=== PATIENT | female | born 1965 | race American Indian/Alaskan Native ===

== ENCOUNTER 2017-02-22 15:12 | Outpatient (CLI) | payer MEDICARE ==
--- NOTE | 2017-02-23 09:45 | Mammography Report ---
Bilateral mammogram: Compared to 12/27/13. CAD study utilized. Findings: Predominance adipose tissue bilaterally. Benign density right breast. Benign axillary nodes. No microcalcification. Benign calcifications bilaterally. Impression: Benign findings. Annual followup recommended. BI-RADS CATEGORY: 2 = Benign ACR BI-RADS MAMMOGRAPHIC CODES: 0 = Needs additional imaging evaluation; 1 = Negative; 2 = Benign; 3 = Probably benign; 4 = Suspicious; 5 = Malignant; 6 = Known biopsy-proven malignancy COMMENT: 1. Dense breast tissue, i.e., adenosis, fibrocystic changes, etc., may obscure an underlying neoplasm. 2. Approximately 10% of cancers are not detected with mammography. 3. A negative mammography report should not delay biopsy if a clinically suspicious mass is present. COMMENT: Patient follow-up letters are generated in [employer].
== END 2017-02-22 15:13 | disposition home or self-care (01) ==
LOC: MAMMO 15:12
PROVIDERS: ATTEND Physician Assistant
DX: Z12.31 Encounter for screening mammogram for malignant neoplasm of breast (principal)
CPT/HCPCS: 77067; G0202

== ENCOUNTER 2017-03-15 17:43 | Emergency (ER) | payer MEDICARE ==
[2017-03-15 18:52] LABS: Hematocrit 37.3 % (30.3-42.9); Mean Corpuscular HGB Conc 32 % (30-34); Mean Corpuscular Hemoglobin 28 pg (28-32); Mean Corpuscular Volume 86 fl (79-97); Platelet Count 154 K/mm3 (140-440); Red Blood Count 4.35 M/mm3 (3.65-5.03); Red Cell Distribution Width 14.4 % (13.2-15.2); White Blood Count 2.9 K/mm3 (4.5-11.0)
[2017-03-15 19:13] LABS: Anion Gap 17 mmol/L; BUN/Creatinine Ratio 14; Blood Urea Nitrogen 10 mg/dL (7-17); Calcium 8.3 mg/dL (8.4-10.2); Carbon Dioxide 24 mmol/L (22-30); Chloride 97.2 mmol/L (98-107); Glucose 102 mg/dL (65-100); Potassium 3.4 mmol/L (3.6-5.0); Sodium 135 mmol/L (137-145)
[2017-03-15] MEDS ORDERED: MOTRIN PO ONE (23:18)
[2017-03-15] MEDS ORDERED: ZOFRAN ODT PO ONE (23:18)
[2017-03-15] MEDS ORDERED: GUAIFENESIN DM SYRUP PO ONE (23:19)
--- NOTE | 2017-03-16 | Emergency Department Report ---
- General Chief Complaint: Upper Respiratory Infection Stated Complaint: FLU LIKE SYMPTOMS Time Seen by Provider: 03/15/17 23:10 Source: patient Mode of arrival: Ambulatory Limitations: No Limitations - History of Present Illness Initial Comments: 51-year-old female past medical history asthma, hypertension and sarcoidosis presents with complaint of runny nose, sore throat, chills fever and body aches. Patient awake alert and oriented 3 speaking in full sentences no trismus noted drooling or stridor audible on exam. Patient denies chest pain or palpitations. Primarily complaining of viral type symptoms as stated above. Symptoms have been ongoing for 3 days. Patient is not sure if she has had sick contacts. Has not taken any medicines at home for symptoms. MD Complaint: fever, cough, sore throat, rhinorrhea, nasal congestion Onset/Timin -: days(s) Severity: moderate Severity scale (0 -10): 5 Improves With: nothing Associated Symptoms: fever, chills, rhinorrhea, cough Treatments Prior to Arrival: none - Related Data Home Medications Medication Instructions Recorded Confirmed Last Taken Cyclobenzaprine [Flexeril 10 MG 10 mg PO QHS 07/03/14 06/04/15 04/29/15 21:00 TAB] Previous Rx's Medication Instructions Recorded Last Taken Type ALBUTEROL Inhaler [ProAir HFA 2 puff IH QID PRN #1 inha 07/09/14 01/29/15 09:00 Rx Inhaler] Esomeprazole Magnesium [NexIUM] 40 mg PO QDAY #30 capsule. 07/09/14 04/29/15 09:00 Rx Fluticasone (Nf) [Flovent HFA] 2 inh IH DAILY #1 puff 07/09/14 04/05/15 09:00 Rx Albuterol *Only Ed* [Proventil 2.5 mg IH Q4HRT PRN #120 nebu 06/05/15 Unknown Rx 0.5% NEBS] Amitriptyline [Elavil] 10 mg PO QHS #30 tablet 06/05/15 Unknown Rx Budesonide [Pulmicort Respules] 0.5 mg IH Q12HRT #60 nebu 06/05/15 Unknown Rx Docusate Sodium [Colace CAP] 100 mg PO BID #60 capsule 06/05/15 Unknown Rx Ferrous Sulfate [Feosol 325 MG tab] 325 mg PO DAILY #30 tablet 06/05/15 Unknown Rx Ibuprofen 800 mg PO TID #30 06/05/15 Unknown Rx Sertraline [Zoloft] 100 mg PO QHS #30 tablet 06/05/15 Unknown Rx amLODIPine [Norvasc] 10 mg PO DAILY #30 tablet 06/05/15 Unknown Rx predniSONE [Deltasone] 1 mg PO DAILY #30 tablet 06/05/15 Unknown Rx Cyclobenzaprine [Flexeril] 10 mg PO BID PRN #10 tablet 02/12/16 Unknown Rx Ibuprofen [Motrin] 600 mg PO Q8H PRN #15 tablet 02/12/16 Unknown Rx traMADol [Ultram 50 MG tab] 50 mg PO Q4HR PRN #40 tablet 02/15/16 Unknown Rx Azithromycin [Zithromax Z-JAY] 250 mg PO QDAY #1 pack 03/16/17 Unknown Rx Dextromethorphan/Benzocaine 1 each PO Q4H PRN #1 box 03/16/17 Unknown Rx [Cepacol Sorethroat-Cough Chayo] Ondansetron [Zofran Odt] 4 mg PO Q8HR PRN #20 tab.rapdis 03/16/17 Unknown Rx Oseltamivir [Tamiflu] 75 mg PO BID #10 cap 03/16/17 Unknown Rx Phenylephrine/Dm/Acetaminop/GG 10 ml PO Q4H PRN #1 liquid 03/16/17 Unknown Rx [Mucinex Bnze-Wyw-Hgnfofkoet Lq] Allergies Allergy/AdvReac Type Severity Reaction Status Date / Time Sulfa (Sulfonamide Allergy Shortness Verified 04/22/15 15:07 Antibiotics) of Breath ED Review of Systems ROS: Stated complaint: FLU LIKE SYMPTOMS Other details as noted in HPI Constitutional: denies: chills, fever Eyes: denies: eye pain, eye discharge, vision change ENT: throat pain, congestion. denies: ear pain Respiratory: cough. denies: shortness of breath, wheezing Cardiovascular: denies: chest pain, palpitations Endocrine: no symptoms reported Gastrointestinal: denies: abdominal pain, nausea, diarrhea Genitourinary: denies: urgency, dysuria, discharge Musculoskeletal: denies: back pain, joint swelling, arthralgia Skin: denies: rash, lesions Neurological: denies: headache, weakness, paresthesias Psychiatric: denies: anxiety, depression Hematological/Lymphatic: denies: easy bleeding, easy bruising ED Past Medical Hx - Past Medical History Hx Hypertension: Yes Hx Heart Attack/AMI: No Hx Congestive Heart Failure: No Hx Diabetes: No Hx Asthma: Yes (BRONCHIAL) Hx COPD: No Hx HIV: No Additional medical history: scarodosis - Surgical History Additional Surgical History: discectomy. tubal ligation - Social History Smoking Status: Never Smoker Substance Use Type: None - Medications Home Medications: Home Medications Medication Instructions Recorded Confirmed Last Taken Type Cyclobenzaprine [Flexeril 10 MG 10 mg PO QHS 07/03/14 06/04/15 04/29/15 21:00 History TAB] ALBUTEROL Inhaler [ProAir HFA 2 puff IH QID PRN #1 inha 07/09/14 06/04/15 09:00 Rx Inhaler] Esomeprazole Magnesium [NexIUM] 40 mg PO QDAY #30 capsule. 07/09/14 06/04/15 04/29/15 09:00 Rx Fluticasone (Nf) [Flovent HFA] 2 inh IH DAILY #1 puff 07/09/14 06/04/15 09:00 Rx Albuterol *Only Ed* [Proventil 2.5 mg IH Q4HRT PRN #120 nebu 06/05/15 Unknown Rx 0.5% NEBS] Amitriptyline [Elavil] 10 mg PO QHS #30 tablet 06/05/15 Unknown Rx Budesonide [Pulmicort Respules] 0.5 mg IH Q12HRT #60 nebu 06/05/15 Unknown Rx Docusate Sodium [Colace CAP] 100 mg PO BID #60 capsule 06/05/15 Unknown Rx Ferrous Sulfate [Feosol 325 MG tab] 325 mg PO DAILY #30 tablet 06/05/15 Unknown Rx Ibuprofen 800 mg PO TID #30 06/05/15 Unknown Rx Sertraline [Zoloft] 100 mg PO QHS #30 tablet 06/05/15 Unknown Rx amLODIPine [Norvasc] 10 mg PO DAILY #30 tablet 06/05/15 Unknown Rx predniSONE [Deltasone] 1 mg PO DAILY #30 tablet 06/05/15 Unknown Rx Cyclobenzaprine [Flexeril] 10 mg PO BID PRN #10 tablet 02/12/16 Unknown Rx Ibuprofen [Motrin] 600 mg PO Q8H PRN #15 tablet 02/12/16 Unknown Rx traMADol [Ultram 50 MG tab] 50 mg PO Q4HR PRN #40 tablet 02/15/16 Unknown Rx Azithromycin [Zithromax Z-JAY] 250 mg PO QDAY #1 pack 03/16/17 Unknown Rx Dextromethorphan/Benzocaine 1 each PO Q4H PRN #1 box 03/16/17 Unknown Rx [Cepacol Sorethroat-Cough Chayo] Ondansetron [Zofran Odt] 4 mg PO Q8HR PRN #20 tab.rapdis 03/16/17 Unknown Rx Oseltamivir [Tamiflu] 75 mg PO BID #10 cap 03/16/17 Unknown Rx Phenylephrine/Dm/Acetaminop/GG 10 ml PO Q4H PRN #1 liquid 03/16/17 Unknown Rx [Mucinex Nbme-Uxh-Vtufwvqvyc Lq] ED Physical Exam - General Limitations: No Limitations General appearance: alert, in no apparent distress - Head Head exam: Present: atraumatic, normocephalic - Eye Eye exam: Present: normal appearance, PERRL, EOMI - ENT ENT exam: Present: mucous membranes moist - Neck Neck exam: Present: normal inspection, full ROM - Respiratory Respiratory exam: Present: normal lung sounds bilaterally. Absent: respiratory distress - Cardiovascular Cardiovascular Exam: Present: regular rate, normal rhythm. Absent: systolic murmur, diastolic murmur, rubs, gallop - GI/Abdominal GI/Abdominal exam: Present: soft, normal bowel sounds - Extremities Exam Extremities exam: Present: normal inspection - Back Exam Back exam: Present: normal inspection - Neurological Exam Neurological exam: Present: alert, oriented X3 - Psychiatric Psychiatric exam: Present: normal affect, normal mood - Skin Skin exam: Present: warm, dry, intact, normal color. Absent: rash ED Course Vital Signs 03/15/17 03/16/17 17:49 00:01 Temperature 98.6 F 99.2 F Pulse Rate 94 H 70 Respiratory 18 20 Rate Blood Pressure 112/65 Blood Pressure 123/76 [Right] O2 Sat by Pulse 99 99 Oximetry ED Medical Decision Making - Lab Data Result diagrams: 03/15/17 18:35 03/15/17 18:35 - Medical Decision Making A/P: Influenza A positive 1-flu test positive. Case discussed with 2-I discussed with patient whether or not she would like to take Tamiflu as symptom onset was approximately 72 hours ago. I informed patient that Tamiflu is not always effective but may help some patients with her symptoms to decrease length of illness. Patient stated she is interested in taking Tamiflu. 3-Mucinex when necessary. Patient already on daily prednisone for history of sarcoidosis. 4- will also cover patient empirically with azithromycin to mitigate secondary bacterial lung infection. 5-I advised patient to remain well-hydrated we'll provide her with Zofran when necessary for nausea. Patient states that she could follow up with her primary care doctor at the end of the week. I specifically advised patient to return to the ED for any inability to tolerate by mouth shortness of breath at rest persistent fevers above 100.4 Fahrenheit despite Tylenol or Motrin use. Critical care attestation.: If time is entered above; I have spent that time in minutes in the direct care of this critically ill patient, excluding procedure time. ED Disposition Clinical Impression: Influenza A, Viral syndrome, Flu syndrome Disposition: DC-01 TO HOME OR SELFCARE Is pt being admited?: No Does the pt Need Aspirin: No Condition: Stable Instructions: Influenza (ED), Acute Nausea and Vomiting (ED), Viral Syndrome ( ED) Prescriptions: Azithromycin [Zithromax Z-JAY] 250 mg PO QDAY #1 pack Dextromethorphan/Benzocaine [Cepacol Sorethroat-Cough Chayo] 1 each PO Q4H PRN #1 box PRN Reason: Sore Throat Ondansetron [Zofran Odt] 4 mg PO Q8HR PRN #20 tab.rapdis PRN Reason: Nausea Oseltamivir [Tamiflu] 75 mg PO BID #10 cap Phenylephrine/Dm/Acetaminop/GG [Mucinex Ncum-Dzr-Dzejyzrfos Lq] 10 ml PO Q4H PRN #1 liquid PRN Reason: Cough Referrals: PRIMARY CAREMD [Primary Care Provider] - 3-5 Days [facility] [Outside] - 3-5 Days CHARO CHAPMAN MD [Staff Physician] - 3-5 Days Forms: Accompanied Note, Work/School Release Form(ED) Time of Disposition: 00:06
[2017-03-16 00:02] VITALS: BP 123/76
--- NOTE | 2017-03-16 08:03 | XRay Report ---
Chest 2 views. History: Cough and chest pain. Findings: The heart and coronary vessels are normal. The lungs are clear. There is no pleural fluid. 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 No evidence of free air is suspected. Impression: No acute findings.
== END 2017-03-16 00:29 | disposition home or self-care (01) ==
LOC: ED 17:43
DX: J09.X2 Influenza due to identified novel influenza A virus with other respiratory manifestations (principal); B34.9 Viral infection, unspecified; I10 Essential (primary) hypertension; J45.909 Unspecified asthma, uncomplicated; Z88.2 Allergy status to sulfonamides
CPT/HCPCS: 36415; 71020; 80048; 85027; 87116; 87400; 87430; 99284; Q0162

== ENCOUNTER 2017-07-08 15:23 | Emergency (ER) | payer MEDICARE ==
[2017-07-08 16:05] VITALS: BP 127/73
[2017-07-08] MEDS ORDERED: ARTIFICIAL TEARS OPHTH OINT OU ONE (18:15)
--- NOTE | 2017-07-08 18:20 | Emergency Department Report ---
Blank Doc - Documentation Documentation: Patient is a 52-year-old female past medical history sarcoidosis who presents with ideation as pain and right thigh pain. We'll do ultrasound for right thigh and will give pt artificial tears.
[2017-07-08] MEDS ORDERED: LOVENOX SUB-Q ONE (18:37)
--- NOTE | 2017-07-08 18:42 | Emergency Department Report ---
ED General Adult HPI - General Chief complaint: Extremity Injury, Lower Stated complaint: RT UPPER THIGH PAIN/ITCY EYES Time Seen by Provider: 07/08/17 18:37 Source: patient Mode of arrival: Ambulatory Limitations: No Limitations - History of Present Illness Initial comments: Patient is a 52-year-old female past medical history of sarcoidosis who presents with right thigh pain has been going on for last couple days and try HE eyes have been going on for last 4 days. Patient states that she is having headache stuffy nose with her eyes. A Shantz thigh pain is an 8 out of 10 with an achy type of pain nothing makes it better or worse it's been going on constantly for 1 month. She denies having any trauma to the area or any swelling. Patient states that she has I doctor that she follows up with however she was not able to see him today. - Related Data Home Medications Medication Instructions Recorded Confirmed Last Taken Cyclobenzaprine [Flexeril 10 MG 10 mg PO QHS 07/03/14 06/04/15 04/29/15 21:00 TAB] Previous Rx's Medication Instructions Recorded Last Taken Type ALBUTEROL Inhaler [ProAir HFA 2 puff IH QID PRN #1 inha 07/09/14 01/29/15 09:00 Rx Inhaler] Esomeprazole Magnesium [NexIUM] 40 mg PO QDAY #30 capsule. 07/09/14 04/29/15 09:00 Rx Fluticasone (Nf) [Flovent HFA] 2 inh IH DAILY #1 puff 07/09/14 04/05/15 09:00 Rx Albuterol *Only Ed* [Proventil 2.5 mg IH Q4HRT PRN #120 nebu 06/05/15 Unknown Rx 0.5% NEBS] Amitriptyline [Elavil] 10 mg PO QHS #30 tablet 06/05/15 Unknown Rx Budesonide [Pulmicort Respules] 0.5 mg IH Q12HRT #60 nebu 06/05/15 Unknown Rx Docusate Sodium [Colace CAP] 100 mg PO BID #60 capsule 06/05/15 Unknown Rx Ferrous Sulfate [Feosol 325 MG tab] 325 mg PO DAILY #30 tablet 06/05/15 Unknown Rx Ibuprofen 800 mg PO TID #30 06/05/15 Unknown Rx Sertraline [Zoloft] 100 mg PO QHS #30 tablet 06/05/15 Unknown Rx amLODIPine [Norvasc] 10 mg PO DAILY #30 tablet 06/05/15 Unknown Rx predniSONE [Deltasone] 1 mg PO DAILY #30 tablet 06/05/15 Unknown Rx Cyclobenzaprine [Flexeril] 10 mg PO BID PRN #10 tablet 02/12/16 Unknown Rx Ibuprofen [Motrin] 600 mg PO Q8H PRN #15 tablet 02/12/16 Unknown Rx traMADol [Ultram 50 MG tab] 50 mg PO Q4HR PRN #40 tablet 02/15/16 Unknown Rx Azithromycin [Zithromax Z-JAY] 250 mg PO QDAY #1 pack 03/16/17 Unknown Rx Dextromethorphan/Benzocaine 1 each PO Q4H PRN #1 box 03/16/17 Unknown Rx [Cepacol Sorethroat-Cough Chayo] Ondansetron [Zofran Odt] 4 mg PO Q8HR PRN #20 tab.rapdis 03/16/17 Unknown Rx Oseltamivir [Tamiflu] 75 mg PO BID #10 cap 03/16/17 Unknown Rx Phenylephrine/Dm/Acetaminop/GG 10 ml PO Q4H PRN #1 liquid 03/16/17 Unknown Rx [Mucinex Enei-Pql-Bjsxmisoeg Lq] Olopatadine HCl [Pataday] 2.5 ml OP Q8H #1 bottle 07/08/17 Unknown Rx Allergies Allergy/AdvReac Type Severity Reaction Status Date / Time Sulfa (Sulfonamide Allergy Shortness Verified 04/22/15 15:07 Antibiotics) of Breath ED Review of Systems ROS: Stated complaint: RT UPPER THIGH PAIN/ITCY EYES Other details as noted in HPI Constitutional: denies: chills, fever Eyes: denies: eye pain, eye discharge, vision change ENT: denies: ear pain, throat pain Respiratory: denies: cough, shortness of breath, wheezing Cardiovascular: denies: chest pain, palpitations Endocrine: no symptoms reported Gastrointestinal: denies: abdominal pain, nausea, diarrhea Genitourinary: denies: urgency, dysuria, discharge Musculoskeletal: denies: back pain, joint swelling, arthralgia Skin: denies: rash, lesions Neurological: denies: headache, weakness, paresthesias Psychiatric: denies: anxiety, depression Hematological/Lymphatic: denies: easy bleeding, easy bruising ED Past Medical Hx - Past Medical History Hx Hypertension: Yes Hx Heart Attack/AMI: No Hx Congestive Heart Failure: No Hx Diabetes: No Hx Asthma: Yes (BRONCHIAL) Hx COPD: No Hx HIV: No Additional medical history: scarodosis - Surgical History Additional Surgical History: discectomy. tubal ligation - Social History Smoking Status: Never Smoker Substance Use Type: Alcohol - Medications Home Medications: Home Medications Medication Instructions Recorded Confirmed Last Taken Type Cyclobenzaprine [Flexeril 10 MG 10 mg PO QHS 07/03/14 06/04/15 04/29/15 21:00 History TAB] ALBUTEROL Inhaler [ProAir HFA 2 puff IH QID PRN #1 inha 07/09/14 06/04/15 09:00 Rx Inhaler] Esomeprazole Magnesium [NexIUM] 40 mg PO QDAY #30 capsule. 07/09/14 06/04/15 04/29/15 09:00 Rx Fluticasone (Nf) [Flovent HFA] 2 inh IH DAILY #1 puff 07/09/14 06/04/15 09:00 Rx Albuterol *Only Ed* [Proventil 2.5 mg IH Q4HRT PRN #120 nebu 06/05/15 Unknown Rx 0.5% NEBS] Amitriptyline [Elavil] 10 mg PO QHS #30 tablet 06/05/15 Unknown Rx Budesonide [Pulmicort Respules] 0.5 mg IH Q12HRT #60 nebu 06/05/15 Unknown Rx Docusate Sodium [Colace CAP] 100 mg PO BID #60 capsule 06/05/15 Unknown Rx Ferrous Sulfate [Feosol 325 MG tab] 325 mg PO DAILY #30 tablet 06/05/15 Unknown Rx Ibuprofen 800 mg PO TID #30 06/05/15 Unknown Rx Sertraline [Zoloft] 100 mg PO QHS #30 tablet 06/05/15 Unknown Rx amLODIPine [Norvasc] 10 mg PO DAILY #30 tablet 06/05/15 Unknown Rx predniSONE [Deltasone] 1 mg PO DAILY #30 tablet 06/05/15 Unknown Rx Cyclobenzaprine [Flexeril] 10 mg PO BID PRN #10 tablet 11/02/16 Unknown Rx Ibuprofen [Motrin] 600 mg PO Q8H PRN #15 tablet 02/12/16 Unknown Rx traMADol [Ultram 50 MG tab] 50 mg PO Q4HR PRN #40 tablet 02/15/16 Unknown Rx Azithromycin [Zithromax Z-JAY] 250 mg PO QDAY #1 pack 03/16/17 Unknown Rx Dextromethorphan/Benzocaine 1 each PO Q4H PRN #1 box 03/16/17 Unknown Rx [Cepacol Sorethroat-Cough Chayo] Ondansetron [Zofran Odt] 4 mg PO Q8HR PRN #20 tab.rapdis 03/16/17 Unknown Rx Oseltamivir [Tamiflu] 75 mg PO BID #10 cap 03/16/17 Unknown Rx Phenylephrine/Dm/Acetaminop/GG 10 ml PO Q4H PRN #1 liquid 03/16/17 Unknown Rx [Mucinex Wrkn-Uui-Udbdarwjia Lq] Olopatadine HCl [Pataday] 2.5 ml OP Q8H #1 bottle 07/08/17 Unknown Rx ED Physical Exam - General Limitations: No Limitations General appearance: alert, in no apparent distress - Head Head exam: Present: atraumatic, normocephalic - Eye Eye exam: Present: normal appearance - ENT ENT exam: Present: mucous membranes moist - Neck Neck exam: Present: normal inspection - Respiratory Respiratory exam: Present: normal lung sounds bilaterally. Absent: respiratory distress - Cardiovascular Cardiovascular Exam: Present: regular rate, normal rhythm. Absent: systolic murmur, diastolic murmur, rubs, gallop - GI/Abdominal GI/Abdominal exam: Present: soft, normal bowel sounds - Extremities Exam Extremities exam: Present: normal inspection - Back Exam Back exam: Present: normal inspection - Neurological Exam Neurological exam: Present: alert, oriented X3 - Psychiatric Psychiatric exam: Present: normal affect, normal mood - Skin Skin exam: Present: warm, dry, intact, normal color. Absent: rash ED Course Vital Signs 07/08/17 16:01 Temperature 98.1 F Pulse Rate 97 H Respiratory 18 Rate Blood Pressure 127/73 O2 Sat by Pulse 96 Oximetry ED Medical Decision Making - Medical Decision Making Cdx: Right thigh pain 2/2 DVT ddx: allergic conjunctivitis, Right thigh muscle strain I will give patient a shot of lovenox and will send patient home with pataday drops. Discussed plan with patient and patient agrees with plan. Additional verbal discharge instructions were given. Critical care attestation.: If time is entered above; I have spent that time in minutes in the direct care of this critically ill patient, excluding procedure time. ED Disposition Clinical Impression: Right thigh pain Allergic conjunctivitis Qualifiers: Laterality: bilateral Qualified Code(s): H10.13 - Acute atopic conjunctivitis, bilateral Disposition: TO HOME OR SELFCARE Is pt being admited?: No Does the pt Need Aspirin: No Condition: Stable Additional Instructions: Come back tomorrow between hours of atypical abdomen emergency department to get a Doppler's ultrasound of your right lower extremity to rule out Deep venous thrombosis Prescriptions: Olopatadine HCl [Pataday] 2.5 ml OP Q8H #1 bottle Referrals: ISABEL IVORY MD [Staff Physician] - 3-5 Days
== END 2017-07-08 19:12 | disposition home or self-care (01) ==
LOC: ED 15:23
DX: M79.651 Pain in right thigh (principal); H10.31 Unspecified acute conjunctivitis, right eye; Z88.2 Allergy status to sulfonamides; I10 Essential (primary) hypertension; J45.909 Unspecified asthma, uncomplicated; Z98.51 Tubal ligation status
CPT/HCPCS: 96372; 99282; J1650

== ENCOUNTER 2017-07-09 11:40 | Outpatient (CLI) | payer MEDICARE | END 2017-07-09 11:41 | disposition home or self-care (01) | LOC: VAS 11:40 | PROVIDERS: ATTEND Emergency Medicine | DX: M79.661 Pain in right lower leg (principal); M79.651 Pain in right thigh; M79.89 Other specified soft tissue disorders; I10 Essential (primary) hypertension; J45.909 Unspecified asthma, uncomplicated; D64.9 Anemia, unspecified ==

== ENCOUNTER 2018-01-11 22:41 | Emergency (ER) | payer MEDICARE ==
[2018-01-12] MEDS ORDERED: ULTRAM PO ONE (01:34)
[2018-01-12] MEDS ORDERED: ULTRAM ONE (01:36)
[2018-01-12] MEDS ORDERED: MOTRIN PO ONE (02:26)
[2018-01-12] MEDS ORDERED: DELTASONE PO ONE (02:26)
--- NOTE | 2018-01-12 02:39 | Emergency Department Report ---
ED Fall HPI - General Chief Complaint: Fall Stated Complaint: FALL Time Seen by Provider: 01/12/18 02:25 Source: patient Mode of arrival: Ambulatory - History of Present Illness Initial Comments: 52-year-old -[place] female with a past medical history of hypertension , sarcoidosis, discectomy and recent diagnosis of lupus comes in stating that today around 8 PM she was running from a pit bull and failed. Now complains of total body pain and is unsure if she hit her head. Patient reports that she has tingling and burning in the back of her neck and feels stiff all over. MD Complaint: fall -: This evening Time: 20:00 Fall From: standing, other (running) Fall Witnessed: no Place Fall Occurred: home Loss of Consciousness: none Prolonged Down Time?: no Symptoms Prior to Fall: none Location - Extremities: Left: Shoulder, Right: Thigh (hip) Severity scale (0 -10): 10 Quality: burning, tingling, other (stiffness) - Related Data Home Medications Medication Instructions Recorded Confirmed Last Taken Cyclobenzaprine [Flexeril 10 MG 10 mg PO QHS 07/03/14 06/04/15 04/29/15 21:00 TAB] Previous Rx's Medication Instructions Recorded Last Taken Type ALBUTEROL Inhaler (OR & NICU) 2 puff IH QID PRN #1 inha 07/09/14 01/29/15 09:00 Rx [ProAir HFA Inhaler] Esomeprazole Magnesium [NexIUM] 40 mg PO QDAY #30 capsule. 07/09/14 04/29/15 09:00 Rx Fluticasone (Nf) [Flovent HFA] 2 inh IH DAILY #1 puff 07/09/14 04/05/15 09:00 Rx Albuterol *Only Ed* [Proventil 2.5 mg IH Q4HRT PRN #120 nebu 06/05/15 Unknown Rx 0.5% NEBS] Amitriptyline [Elavil] 10 mg PO QHS #30 tablet 06/05/15 Unknown Rx Budesonide [Pulmicort Respules] 0.5 mg IH Q12HRT #60 nebu 06/05/15 Unknown Rx Docusate Sodium [Colace CAP] 100 mg PO BID #60 capsule 06/05/15 Unknown Rx Ferrous Sulfate [Feosol 325 MG tab] 325 mg PO DAILY #30 tablet 06/05/15 Unknown Rx Ibuprofen 800 mg PO TID #30 06/05/15 Unknown Rx Sertraline [Zoloft] 100 mg PO QHS #30 tablet 06/05/15 Unknown Rx amLODIPine [Norvasc] 10 mg PO DAILY #30 tablet 06/05/15 Unknown Rx predniSONE [Deltasone] 1 mg PO DAILY #30 tablet 06/05/15 Unknown Rx Cyclobenzaprine [Flexeril] 10 mg PO BID PRN #10 tablet 02/12/16 Unknown Rx Azithromycin [Zithromax Z-JAY] 250 mg PO QDAY #1 pack 03/16/17 Unknown Rx Dextromethorphan/Benzocaine 1 each PO Q4H PRN #1 box 03/16/17 Unknown Rx [Cepacol Sorethroat-Cough Chayo] Ondansetron [Zofran Odt] 4 mg PO Q8HR PRN #20 tab.rapdis 03/16/17 Unknown Rx Oseltamivir [Tamiflu] 75 mg PO BID #10 cap 03/16/17 Unknown Rx Phenylephrine/Dm/Acetaminop/GG 10 ml PO Q4H PRN #1 liquid 03/16/17 Unknown Rx [Mucinex Pdpv-Fpt-Bhhmloscwh Lq] Olopatadine HCl [Pataday] 2.5 ml OP Q8H #1 bottle 07/08/17 Unknown Rx Ibuprofen [Motrin 600 MG tab] 600 mg PO Q8H PRN #15 tablet 01/12/18 Unknown Rx traMADol [Ultram 50 MG tab] 50 mg PO Q4HR PRN #12 tablet 01/12/18 Unknown Rx Allergies Allergy/AdvReac Type Severity Reaction Status Date / Time Sulfa (Sulfonamide Allergy Shortness Verified 04/22/15 15:07 Antibiotics) of Breath ED Review of Systems ROS: Stated complaint: FALL Other details as noted in HPI Comment: All other systems reviewed and negative Musculoskeletal: arthralgia (left shoulder, right hip, left side rib pain.) ED Past Medical Hx - Past Medical History Hx Hypertension: Yes Hx Heart Attack/AMI: No Hx Congestive Heart Failure: No Hx Diabetes: No Hx Asthma: Yes (BRONCHIAL) Hx COPD: No Hx HIV: No Additional medical history: scarodosis - Surgical History Additional Surgical History: discectomy. tubal ligation - Social History Smoking Status: Never Smoker Substance Use Type: None - Medications Home Medications: Home Medications Medication Instructions Recorded Confirmed Last Taken Type Cyclobenzaprine [Flexeril 10 MG 10 mg PO QHS 07/03/14 06/04/15 04/29/15 21:00 History TAB] ALBUTEROL Inhaler (OR & NICU) 2 puff IH QID PRN #1 inha 07/09/14 06/04/15 09:00 Rx [ProAir HFA Inhaler] Esomeprazole Magnesium [NexIUM] 40 mg PO QDAY #30 capsule. 07/09/14 06/04/15 04/29/15 09:00 Rx Fluticasone (Nf) [Flovent HFA] 2 inh IH DAILY #1 puff 07/09/14 06/04/15 09:00 Rx Albuterol *Only Ed* [Proventil 2.5 mg IH Q4HRT PRN #120 nebu 06/05/15 Unknown Rx 0.5% NEBS] Amitriptyline [Elavil] 10 mg PO QHS #30 tablet 06/05/15 Unknown Rx Budesonide [Pulmicort Respules] 0.5 mg IH Q12HRT #60 nebu 06/05/15 Unknown Rx Docusate Sodium [Colace CAP] 100 mg PO BID #60 capsule 06/05/15 Unknown Rx Ferrous Sulfate [Feosol 325 MG tab] 325 mg PO DAILY #30 tablet 06/05/15 Unknown Rx Ibuprofen 800 mg PO TID #30 06/05/15 Unknown Rx Sertraline [Zoloft] 100 mg PO QHS #30 tablet 06/05/15 Unknown Rx amLODIPine [Norvasc] 10 mg PO DAILY #30 tablet 06/05/15 Unknown Rx predniSONE [Deltasone] 1 mg PO DAILY #30 tablet 06/05/15 Unknown Rx Cyclobenzaprine [Flexeril] 10 mg PO BID PRN #10 tablet 02/12/16 Unknown Rx Azithromycin [Zithromax Z-JAY] 250 mg PO QDAY #1 pack 03/16/17 Unknown Rx Dextromethorphan/Benzocaine 1 each PO Q4H PRN #1 box 03/16/17 Unknown Rx [Cepacol Sorethroat-Cough Chayo] Ondansetron [Zofran Odt] 4 mg PO Q8HR PRN #20 tab.rapdis 03/16/17 Unknown Rx Oseltamivir [Tamiflu] 75 mg PO BID #10 cap 03/16/17 Unknown Rx Phenylephrine/Dm/Acetaminop/GG 10 ml PO Q4H PRN #1 liquid 03/16/17 Unknown Rx [Mucinex Ejaw-Ufb-Rxhoianqmk Lq] Olopatadine HCl [Pataday] 2.5 ml OP Q8H #1 bottle 07/08/17 Unknown Rx Ibuprofen [Motrin 600 MG tab] 600 mg PO Q8H PRN #15 tablet 01/12/18 Unknown Rx traMADol [Ultram 50 MG tab] 50 mg PO Q4HR PRN #12 tablet 01/12/18 Unknown Rx ED Physical Exam - General Limitations: No Limitations General appearance: alert, in no apparent distress - Head Head exam: Present: atraumatic, normocephalic - Eye Eye exam: Present: EOMI - ENT ENT exam: Present: mucous membranes moist - Neck Neck exam: Present: tenderness (left trapezius tenderness to palpate), full ROM - Respiratory Respiratory exam: Present: normal lung sounds bilaterally, chest wall tenderness (left rib area). Absent: respiratory distress - Cardiovascular Cardiovascular Exam: Present: regular rate, normal rhythm. Absent: systolic murmur, diastolic murmur, rubs, gallop - Expanded Upper Extremity Exam Left Shoulder Exam: Present: full ROM, tenderness. Absent: swelling, abrasion Upper Arm exam: Present: full ROM, tenderness. Absent: swelling Elbow exam: Present: full ROM, tenderness. Absent: swelling, abrasion Forearm Wrist exam: Present: normal inspection Hand Wrist exam: Present: normal inspection Vascular: Present: normal capillary refill. Absent: vascular compromise - Expanded Lower Extremity Exam Right Hip exam: Present: full ROM. Absent: tenderness, swelling, abrasion, ecchymosis , deformity, dislocation, internal rotation, shortening Upper Leg exam: Present: full ROM, tenderness. Absent: swelling, abrasion Knee exam: Present: full ROM. Absent: tenderness, swelling Lower Leg exam: Present: tenderness. Absent: swelling, abrasion Ankle exam: Present: full ROM, tenderness. Absent: swelling Gait: Positive: observed and limited by pain - Back Exam Back exam: Present: normal inspection, full ROM - Neurological Exam Neurological exam: Present: alert, oriented X3 - Psychiatric Psychiatric exam: Present: normal affect, normal mood - Skin Skin exam: Present: warm, dry, intact, normal color. Absent: rash ED Course Vital Signs 01/11/18 23:38 Temperature 98.7 F Pulse Rate 83 Respiratory 14 Rate Blood Pressure 121/79 [Left] O2 Sat by Pulse 99 Oximetry ED Medical Decision Making - Radiology Data Radiology results: report reviewed FINAL REPORT PROCEDURE: XR SHOULDER 2+V LT TECHNIQUE: Left shoulder radiographs including AP views in internal and external rotation and abduction. CPT 12535 HISTORY: fall with pain COMPARISON: No prior studies are available for comparison. FINDINGS: Fracture (s) and/or Dislocation(s): None . Joint space(s): Normal . Soft tissues: Normal . Bone mineralization: Normal . Foreign bodies: None . IMPRESSION: Normal Examination Transcribed By: CO Dictated By: BHARAT HOUSE MD Electronically Authenticated By: BHARAT HOUSE MD Signed Date/Time: 01/12/18321 DD/ 1 TD/TT: 01/12/18321 FINAL REPORT PROCEDURE: XR RIBS UNILAT 2V LT TECHNIQUE: Unilateral rib radiographs, 2 views of the LEFT ribs. HISTORY: fall with pain COMPARISON: No prior studies are available for comparison. FINDINGS: Lungs: Normal. Pleural space: Normal. Pneumothorax: None. Bony thorax/ribs: No significant abnormality. IMPRESSION: Normal Examination. Transcribed By: CO Dictated By: BHARAT HOUSE MD Electronically Authenticated By: BHARAT HOUSE MD Signed Date/Time: 01/12/18320 DD/ 0 TD/TT: 01/12/18320 Critical care attestation.: If time is entered above; I have spent that time in minutes in the direct care of this critically ill patient, excluding procedure time. ED Disposition Clinical Impression: Contusion, shoulder /upper arm Fall Qualifiers: Encounter type: initial encounter Qualified Code(s): W19.XXXA - Unspecified fall, initial encounter Contusion of hip and thigh Qualifiers: Encounter type: initial encounter Laterality: right Qualified Code(s): S70.01XA - Contusion of right hip, initial encounter; S70.11XA - Contusion of right thigh, initial encounter Abrasion of leg, right Qualifiers: Encounter type: initial encounter Qualified Code(s): S80.811A - Abrasion, right lower leg, initial encounter Disposition: - TO HOME OR SELFCARE Is pt being admited?: No Does the pt Need Aspirin: No Condition: Stable Instructions: Fall Prevention (ED), Fall Prevention for Older Adults (ED) Additional Instructions: Please take pain medication as needed. Follow up with her primary care provider if her symptoms persist or gets worse. Prescriptions: Ibuprofen [Motrin 600 MG tab] 600 mg PO Q8H PRN #15 tablet PRN Reason: Pain traMADol [Ultram 50 MG tab] 50 mg PO Q4HR PRN #12 tablet PRN Reason: Pain Referrals: PRIMARY CARE, [Primary Care Provider] - 3-5 Days Forms: Work/School Release Form(ED)
--- NOTE | 2018-01-12 03:23 | XRay Report ---
FINAL REPORT PROCEDURE: XR RIBS UNILAT 2V LT TECHNIQUE: Unilateral rib radiographs, 2 views of the LEFT ribs. HISTORY: fall with pain COMPARISON: No prior studies are available for comparison. FINDINGS: Lungs: Normal. Pleural space: Normal. Pneumothorax: None. Bony thorax/ribs: No significant abnormality. IMPRESSION: Normal Examination.
--- NOTE | 2018-01-12 03:24 | XRay Report ---
FINAL REPORT PROCEDURE: XR SHOULDER 2+V LT TECHNIQUE: Left shoulder radiographs including AP views in internal and external rotation and abduction. CPT 40014 HISTORY: fall with pain COMPARISON: No prior studies are available for comparison. FINDINGS: Fracture (s) and/or Dislocation(s): None . Joint space(s): Normal . Soft tissues: Normal . Bone mineralization: Normal . Foreign bodies: None . IMPRESSION: Normal Examination
[2018-01-12 03:59] VITALS: BP 126/79
== END 2018-01-12 03:58 | disposition home or self-care (01) ==
LOC: ED 22:41
DX: S40.012A Contusion of left shoulder, initial encounter (principal); S70.01XA Contusion of right hip, initial encounter; S70.11XA Contusion of right thigh, initial encounter; S80.811A Abrasion, right lower leg, initial encounter; I10 Essential (primary) hypertension; J45.909 Unspecified asthma, uncomplicated; Z98.51 Tubal ligation status; Z88.2 Allergy status to sulfonamides; W17.89XA Other fall from one level to another, initial encounter; Y93.89 Activity, other specified; Y92.89 Other specified places as the place of occurrence of the external cause; Y99.8 Other external cause status
CPT/HCPCS: 71100; 73030; 99283; J7512